=== PATIENT | female | born 1995 | race Caucasian/White ===

== ENCOUNTER 2022-05-25 18:00 | Inpatient (IN) | payer BC, SELFPAY ==
[2022-05-25] VITALS (34 sets, daily range): BP systolic 92–127; BP diastolic 54–75; PULSE 56–110; RESP 14; TEMP 36.6–37.2; O2SAT 92–100; BMI 34.0
[2022-05-25 18:02] LABS: Amnisure Rom* POSITIVE
[2022-05-25 19:46] LABS: SARS PCR* Negative SARS-CoV-2 (Negative)
--- NOTE | 2022-05-25 20:20 | P.OBHP_ITS ---
OB - H&P: HPI Labor/Induction History of Present Illness Chief Complaint: The patient is a 26 year old 1 para 0 at 38+4 weeks gestation by 7w US, who presents with contractions and SROM. Chief complaint: maternity : 1 Para: 0 Date of last menstrual period: 08/15/21 Estimated date of delivery: 05/22/22 Gestational age based on last menstrual period: 38 Narrative: Ernestine Echavarria is a 27 year old female at 38 weeks 4 days gestation who presents contractions and a SROM. She was evaluated in triage earlier today for contractions. Found to be 1.5 cm, 80%, -1. No change management consultant the several hours she was here and was discharged home. Continued to contract at home. [place] a trickle of fluid around 2:00 p.m. and came back to Labor and delivery around 4 PM where AmniSure was positive. On my initial cervical exam, I felt as if there may be a septum across the cervical opening with bulging membranes palpated in both. Given patient's known atypical anatomy, OB clinical services professional, Dr. Kiersten Horner, was consulted. Upon her arrival, she repeated the exam. [place] that the patient's left cervical opening was 5/100/- 3. Cervix on maternal right was also very effaced and septum between the two was bulging into the right cervical opening. [place] that these were discrete cervixes as previously thought, and we could proceed with labor management as usual. Following this, I performed AROM for clear fluid. Patient then requested epidural. 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 Perinatology consult in the 2nd trimester. It was noted there was no contraindication to vaginal incision should be reserved for normal obstetric indications. 2. Fibromyalgia and chronic fatigue. Frequent headaches managed with Tylenol 3. PCOS 4. Euthyroid with positive TPO antibody. Thyroid testing normal during . 5. Anemia on oral iron. Hemoglobin 10.9 on 05/01 6. Depression on sertraline. Mood has been stable during . Labs Blood type: A (+) positive Rubella: immune RPR/VDLR: nonreactive GBS status: negative HBsAG: negative Review of Systems Status of ROS: Reports: 10 or more systems reviewed and unremarkable except as noted in History and below Meds Home Medications and Allergies Home Medications Medication Instructions Recorded Confirmed Type sertraline 100 mg tablet mg 05/25/22 History Allergies Allergy/AdvReac Type Severity Reaction Status Date / Time latex Allergy Intermediate itching Verified 05/25/22 02:13 OB - H&P: Exam Physical Exam: Vital signs: Temp Pulse Resp BP Pulse Ox 98.4 F 67 14 122/75 97 05/25/22 17:32 05/25/22 19:11 05/25/22 17:32 05/25/22 19:11 05/25/22 17:32 Narrative: General: Well-appearing adult female. Alert oriented and appropriate. Sitting up in hospital bed. Breathing through contractions. Head: Normocephalic, atraumatic Eyes: EOMI, no conjunctival injection or discharge. Ears: Normal external ears bilaterally Nose: Nares patent. No nasal discharge Mouth: Mucous membranes moist Neck: Supple Cardiovascular: Regular rate and rhythm, no rubs, murmurs or extra heart sounds Pulmonary: Clear to auscultation bilaterally. No wheezes, rales or rhonchi. Abdomen: Gravid. Soft. Extremities: Warm and well perfused. Trace edema bilaterally. Neurologic: Grossly intact. No focal deficits. Psych: Affect appropriate. Detailed Labor and Delivery Exam: Dilation (cm): 3 (Cervix on maternal left. Bulging bag. Cervix on maternal right dilated to 2-3, 100% effaced.) Effacement (%): 100 Cervix position: anterior Consistency: soft Comments: Dom Q 7-9 minutes. Moderate variability. Positive accels. No decels. OB - Results Labs Labs: Hemoglobin 12.3. COVID negative. OB - Problem Based A/P Additional Plan (1) Uterus didelphys in : Status: Acute (2) Normal first confirmed: Status: Acute Plan 1&2. - Normal labor progress. Expectant management. - Epicural planned for pain control - status reassuring. Continue intermittent monitoring - GBS negative CC: Cecilia Villalta MD
[2022-05-25 20:28] LABS: Hemoglobin* 12.3 gm/dL (12.0-16.0)
[2022-05-25] MEDS: LACTATED RINGERS 1000 ML 1,000 ML IV (21:46)
--- NOTE | 2022-05-25 21:52 | P.OBCN_ITS ---
OB - CN: HPI Date of Consult Date Seen: 05/25/22 Patient: [place] Patient Consult date: 05/25/22 Requesting Physician: Cecilia Villalta MD Consult Narrative Narrative: The patient is a 27 year old G1 P 0 woman at 38 4/7 weeks gestation that was admitted to the Center on 05/25/22 for labor. She had Amnisure test return positive shortly after admission. Her history is notable for uterine didelphys. She as been seen in consult by MPP during this . She has had imaging including MRI in the past. Per Dr. Iqbal, recommendations were to manage her labor as per usual. Upon cervical exam, Dr. Villalta was concerned for longitudinal vaginal septum, and I have been asked to evaluate the patient for this. History History 1 Elective abortions Para 0 Spontaneous abortions Hx # Term Pregnancies Ectopic pregnancies Hx # Pregnancies Multiple births Number of Living Children 0 Labs Blood type: A (+) positive Rubella: immune RPR/VDLR: nonreactive GBS status: negative HBsAG: negative OB Labs: Lab Assessment Start: 05/25/22 18:06 Freq: ONCE Status: Complete Protocol: NextinitOBGBS Activity Type Activity Date Activity User E-Sign Co-Sign Detail Recorded Client Recorded Date Recorded By Document 05/25/22 18:19 YUNG [id number] 05/25/22 18:22 YUNG 05/25/22 18:19 Lab Assessment GBS neg Previous [place] with Invasive GBS No Does Patient Meet Criteria No No Treatment Needed OK Maternal Blood Type A Maternal RH Factor Positive Evaluate Maternal Rubella Immune Status Immune Hepatitis B Surface Antigen Negative Maternal HIV Status Negative Maternal Syphillis (RPR) Status Negative Are Labs Available Yes Review of Systems Narrative: + for regular contractions PFSH PFSH Medical History (Updated 05/25/22 @ 21:48 by Cecilia Villalta MD) Anemia Anti-TPO antibodies present Chronic fatigue Depression Fibromyalgia PCOS (polycystic ovarian syndrome) Uterus didelphys in Social History (Updated 05/25/22 @ 21:23 by Cecilia Villalta MD) Smoking Status: Never smoker Meds Home Medications and Allergies Home Medications Medication Instructions Recorded Confirmed Type sertraline 100 mg tablet mg 05/25/22 History Allergies Allergy/AdvReac Type Severity Reaction Status Date / Time latex Allergy Intermediate itching Verified 05/25/22 02:13 OB - H&P: Exam Physical Exam: Vital signs: Temp Pulse Resp BP Pulse Ox 98.4 F 67 14 122/75 97 05/25/22 17:32 05/25/22 19:11 05/25/22 17:32 05/25/22 19:11 05/25/22 17:32 Narrative: Gen: Breathing through contractions, sitting upright, rocking in bed Cervical exam: cervix on maternal right / anterior is 6 / 100% / -2 station with bulging bag. Immediately adjacent to this is a very thin separation and what seems to be another cervical os that is less dilated but 100% effaced; this os is to the right and slightly posterior. The cervices seem to share a common border in the midline. heart tones: baseline 130 / accels present / no decel / moderate variability OB - Results Labs Labs: Short CBC 05/25/22 Range/Units 20:20 Hgb 12.3 (12.0-16.0) gm/dL OB - CN: A/P Assessment and Plan (1) Uterus didelphys in : Status: Acute Assessment and Plan: Active labor in patient with uterine didelphys Category I tracing. This is my first exam for this patient. 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 Regardless, I agree [facility] recommendations for expectant management. I will be available for management of any labor arrest disorders or for assistance with any cervical lacerations arising from vaginal .
[2022-05-25] MEDS: ROPIVACAINE 0.2% 100 ml 100 ML 12 MG EPIDURAL (22:38)
--- NOTE | 2022-05-25 22:47 | PM.ANBPRC ---
PFSH PFS Medical History (Updated 05/25/22 @ 21:48 by Cecilia Villalta MD) Anemia Anti-TPO antibodies present Chronic fatigue Depression Fibromyalgia PCOS (polycystic ovarian syndrome) Uterus didelphys in Social History (Updated 05/25/22 @ 21:23 by Cecilia Villalta MD) Smoking Status: Never smoker Meds Home Medications and Allergies Home Medications Medication Instructions Recorded Confirmed Type sertraline 100 mg tablet mg 05/25/22 History Allergies Allergy/AdvReac Type Severity Reaction Status Date / Time latex Allergy Intermediate itching Verified 05/25/22 02:13 Results Labs Labs: Laboratory Results - last 24 hr 05/25/22 05/25/22 05/25/22 17:29 18:06 18:19 Hgb Membrane Rupture POSITIVE SARS-CoV-2 (PCR) Negative SARS-CoV-2 Blood Type A Positive Antibody Screen NEGATIVE 05/25/22 20:20 Hgb 12.3 Membrane Rupture SARS-CoV-2 (PCR) Blood Type Antibody Screen Vital Signs Vital Signs: Last Vital Signs Temp 98.4 F 05/25/22 17:32 Pulse 73 05/25/22 22:42 Resp 14 05/25/22 17:32 BP 117/58 L 05/25/22 22:42 Pulse Ox 99 05/25/22 22:43 Weight: 87.044 kg Height: 160.02 cm Anesthesia Procedures Epidural Insertion Patient Location: OB Start Time: 22:00 Stop Time: 23:00 Start Date: 05/25/22 Stop Date: 05/25/22 Reason for Block: procedure for pain Patient Position: sitting Performed By: Eulogio Maldonado Preanesthetic Checklist: IV checked, risks and benefits discussed, surgical consent, monitors and equipment checked, pre-op evaluation, timeout performed and anesthesia consent Prep: chlorhexidine gluconate Monitoring: blood pressure monitoring, continuous pulse oximetry and heart rate Approach: midline Vertebral Space: lumbar (1-5) Epidural Technique: JAYLON saline Needle Type: Tuohy needle Injection Technique: continuous shot Needle gauge: 17 Needle Length (cm): 10 cm Needle Insertion Depth (cm): 8 Catheter Gauge: 19 Catheter Type: multi-orifice Catheter at skin depth (cm): 13 Test Dose Result: negative and lidocaine 1.5% with epinephrine 1 to 200,000
[2022-05-25] MEDS: LACTATED RINGERS 1000 ML 1,000 ML 125 ML IV (22:49)
[2022-05-26] VITALS (81 sets, daily range): BP systolic 89–140; BP diastolic 50–80; PULSE 56–110; RESP 15–18; TEMP 36.6–37.8; O2SAT 61–99
[2022-05-26] MEDS: LACTATED RINGERS 1000 ML 1,000 ML 125 ML IV (01:52)
[2022-05-26] MEDS: OXYTOCIN 30 unit/500 ML in NS 30 UNIT/500 ML BAG IVPB (03:45)
[2022-05-26] MEDS: ROPIVACAINE 0.2% 100 ml 100 ML 12 MG EPIDURAL (06:48)
--- NOTE | 2022-05-26 08:31 | PM.OBPNL ---
Pain Control Time Seen by Provider: 08:31 Date Seen: 05/26/22 Pain control: epidural Comments: Comfortable. Contractions Contraction frequency: 2 (2-6, somewhat irregular) Contraction pattern: Irregular Pelvic Exam Dilation (cm): 10 Effacement (%): 100 Station: -1 Fetus (Single) Amniotic Membrane Status: SROM (Forebag ruptured 05/25 2140) status: Category l Comments: Periods of minimal variablility overnight. No decels. Now moderate variability, + accels. Reassuring. Assessment and Plan Pitocin rate (mU/min): 5 Assessment: active labor Comments: Labor down. Begin pushing in 1 hour or with increased pressure.
[2022-05-26] MEDS: LACTATED RINGERS 1000 ML 1,000 ML 500 ML IV (09:18)
--- NOTE | 2022-05-26 10:59 | PM.OBPNL ---
Pain Control Pain control: epidural Comments: Appears fatigued. Maternal effort poor with pushing. Contractions Contraction frequency: 2 (2-5) Contraction pattern: Regular Pelvic Exam Dilation (cm): 10 Effacement (%): 100 Station: +2 Comments: Asynclitic presentation. Fetus (Single) Amniotic Membrane Status: SROM (Forebag ruptured 05/25 2140) status: Category ll Comments: tachycardia to 170. Minimal variability and deep variables with pushing. Good return to basleline. Assessment and Plan Pitocin rate (mU/min): 6 Assessment: active labor Comments: - Category II tracing, continue to monitor closely - tachycardia. ROM now 21 hours. No maternal fever measured. Plan to start abx if meets criteria for IAI - RN working with patient, positional changes for asynclitism - Guarded status. Low threshold for OB consult to consider section if no signficant progress.
--- NOTE | 2022-05-26 12:23 | P.OBCN_ITS ---
OB - CN: HPI Date of Consult Date Seen: 05/26/22 Patient: [place] Patient Consult date: 05/26/22 Requesting Physician: Cecilia Villalta MD Consult Narrative Reason for consult: arrest of labor Narrative: The patient is a 27 year old G 1 P 0 at 38 5/7 weeks gestation that was admitted to the Center on 05/25/22 for spontaneous onset of labor. She has a known uterine didelphys. She made adequate progress in labor and began pushing at about 0915 this morning. Despite maternal pushing efforts, the fetus remains at a 2+ station. position is occiput posterior and asynclitic. History of Present Dating criteria: based on LMP care: good care complications: other (Uterine didelphis) History History 1 Elective abortions Para 0 Spontaneous abortions Hx # Term Pregnancies Ectopic pregnancies Hx # Pregnancies Multiple births Number of Living Children 0 Labs Blood type: A (+) positive Rubella: immune RPR/VDLR: nonreactive GBS status: negative HBsAG: negative OB Labs: Lab Assessment Start: 05/25/22 18:06 Freq: ONCE Status: Complete Protocol: PC.OBGBS Activity Type Activity Date Activity User E-Sign Co-Sign Detail Recorded Client Recorded Date Recorded By Document 05/25/22 18:19 YUNG [id number] 05/25/22 18:22 YUNG 05/25/22 18:19 Lab Assessment GBS neg Previous [place] with Invasive GBS No Does Patient Meet Criteria No No Treatment Needed OK Maternal Blood Type A Maternal RH Factor Positive Evaluate Maternal Rubella Immune Status Immune Hepatitis B Surface Antigen Negative Maternal HIV Status Negative Maternal Syphillis (RPR) Status Negative Are Labs Available Yes PFSH PFSH Medical History Anemia Anti-TPO antibodies present Chronic fatigue Depression Fibromyalgia PCOS (polycystic ovarian syndrome) Uterus didelphys in Social History Smoking Status: Never smoker Meds Home Medications and Allergies Home Medications Medication Instructions Recorded Confirmed Type sertraline 100 mg tablet mg 05/25/22 History Allergies Allergy/AdvReac Type Severity Reaction Status Date / Time latex Allergy Intermediate itching Verified 05/25/22 02:13 OB - H&P: Exam Physical Exam: Vital signs: Temp Pulse Resp BP Pulse Ox 98.7 F 71 14 104/51 L 92 05/26/22 10:06 05/26/22 11:03 05/25/22 17:32 05/26/22 11:03 05/25/22 23:27 Constitutional: Constitutional: no acute distress Detailed Labor and Delivery Exam: Patient Gravid: yes Dilation (cm): 10 Effacement (%): 100 Cervix position: mid Consistency: soft Contraction duration (sec): 2 Tachysystole: No Contraction intensity: Strong/Firm Fetus (Single): Station: -2 Position: Right Occiput Posterior (asynclitic, manual rotation attempted and unsuccesful) Amniotic Membrane Status: SROM Amniotic Membrane Fluid Description: Clear Heart Rate Baseline: 170 Monitor Accelerations: Absent Monitor Dec elerations: None Business Rules Analyst Variability: Minimal (3-5) OB - Results Labs Labs: Short CBC 05/25/22 Range/Units 20:20 Hgb 12.3 (12.0-16.0) gm/dL OB - CN: A/P Assessment and Plan (1) Uterus didelphys in : Status: Acute (2) Normal first confirmed: Status: Acute (3) Arrested labor: Status: Acute Plan The relative risks of delivery were discussed with the patient. Risks discussed include, not limited to, bleeding, blood transfusion, infection, injury to other organs or infant. We discussed postoperative pain control, the anticipated hospital stay, and the fact that she would be a candidate for vaginal delivery in the future with another as long as no other risk factors arise. Informed consent for delivery was obtained. The OR staff and Anesthesia were notified.
--- NOTE | 2022-05-26 14:26 | W.ANESCHARGE ---
Anesthesia Charges Start Date/Time Anesthesia Start Date: 05/26/22 Anesthesia Start Time: 12:33 Stop Date/Time Anesthesia Stop Date: 05/26/22 Anesthesia Stop Time: 14:19 Summary Emergency: No
--- NOTE | 2022-05-26 15:09 | P.NB_ITS ---
Nerve Block Nerve Block Time Seen by Provider: 15:10 Date Seen: 05/26/22 Type of block requested by surgeon for post-operative analgesia: TAP Side: bilateral Time out performed: Yes Verification of patient name: Yes Verification of date of : Yes Site marking: site marked Name of person performing procedure: Joel Continuous monitoring Was continuous monitoring of O2 sat, B/P, quality assurance monitor final, recorded every 15 minutes?: Yes Procedure Checklist: sterile prep, needles and gloves Ultrasound guided. Images saved: Yes Medications given in 5ml increments after negative aspiration: Marcaine %: 0.25 mL: 30 Needle gauge: 20 and Exparel mL: 10 Patient tolerated procedure well: Yes Additional comments: Needle noted adjacent to nerve
--- NOTE | 2022-05-26 15:10 | W.ANESCHARGE ---
Anesthesia Charges Start Date/Time Anesthesia Start Date: 05/26/22 Anesthesia Start Time: 12:33 Stop Date/Time Anesthesia Stop Date: 05/26/22 Anesthesia Stop Time: 14:19 Summary Emergency: No
--- NOTE | 2022-05-26 16:48 | P.OBPRC_ITS ---
Procedure Pre-op/Post-op diagnoses: Pre-Op/Post-Op Diagnoses Operation Date: 05/26/22 12:45 <No data on this case meets the specified criteria> Procedure Done: only Procedure Details: Procedures Operation Date: 05/26/22 12:45 Actual Procedure Side Surgeon p Section Haylie Galvez MD Mechanical Maintenance Foreman: Bibiana Hopson Estimated blood loss (mL): 1,034 Disposition: floor Anesthesia type: Epidural Complications: None. Narrative: PREOPERATIVE DIAGNOSES: 1. Intrauterine at 38 5/7 weeks' gestation. 2. Uterine didelphys. 3. Secondary arrest of descent. 4. tachycardia. POSTOPERATIVE DIAGNOSES: 1. Intrauterine at 38 5/7 weeks' gestation. 2. Uterine didelphys. 3. Secondary arrest of descent. 4. tachycardia. NAME OF PROCEDURE: Primary low transverse section. SURGEON: Leonor. ANESTHESIA: Epidural. COMPLICATIONS: None. ESTIMATED BLOOD LOSS: 1034 mL. DRAINS: [place] to gravity. FINDINGS: Live-born female infant, cephalic presentation, occiput posterior position with deflexed neck, Apgars 7 and 9 at 1 and 5 minutes respectively. weight pending. Normal appearing Fallopian tubes and ovaries. Uterus was found to have a normal external contour. The uterus had a thick septum running from fundus to cervix, which was disrupted/torn at the level of the lower uterine segment down to the cervix, presumably from cervical dilatation and pushing. The infant and placenta were in the left horn. The right horn was communicating, because the dividing septum was torn along its lower half There was decidual tissue present within the right horn. PROCEDURE: After obtaining informed consent, the patient was taken to the operating room where spinal anesthesia was obtained and found to be adequate. She was prepared and draped in the normal sterile fashion in the dorsal supine position with a leftward tilt. A Pfannenstiel skin incision was made with a scalpel. This incision was carried down to the underlying layer of fascia with the Bovie. The fascia was incised in the midline and the incision extended laterally. The superior and inferior aspects of the fascial incision were g rasped with Breanne clamps, elevated and the underlying rectus muscles dissected off sharply and with electrocautery. The rectus muscles were then in the midline. The Apolinar O retractor was then placed into the incision. The lower uterine segment was then incised in a transverse fashion with the scalpel. Upon entry into the uterus, thick meconium-stain amniotic fluid was noted. The uterine incision was extended laterally with blunt finger fractionation. The infant's head was very difficult to flex and elevate. An RN was asked to sterilely apply cephalad pressure to the vertex, and I was able to flex the neck and deliver the head, followed by the remainder of the infant's body. The nose and mouth were suctioned with the bulb suction. The cord was doubly clamped and cut, and the infant was handed off the field to Dr. Mclean for evaluation. The placenta was delivered spontaneously with umbilical cord traction and fundal massage. The uterus was cleared of all clots and debris. The hysterotomy incision was carefully inspected, as was the uterine cavity. It became apparent that there were 2 uterine horn by a thick septum. Apparently, the septum had initially extended to the level of the cervix, but from the lower uterine segment down, the septum was disrupted, uniting the to cavities. The torn edges of the septum were clamped across with Josh clamps, excised, and the pedicle suture ligated with 0 chromic for hemostasis. The transverse hysterotomy incision was then reapproximated in a running locking fashion with a 0 chromic suture. A 2nd layer of the same suture was used to imbricate in horizontal fashion. The gutters were irrigated and suctioned. All instruments and retractors were removed. The anterior peritoneum was reapproximated in a running fashion with a 3-0 Vicryl suture. The subfascial tissues were carefully inspected and hemostasis assured. The fascia was reapproximated in a running fashion with a looped 0 Maxon suture. The subcutaneous tissues were copiously irrigated. Hemostasis was assured. The subcutaneous fat layer was reapproximated with interrupted sutures of 3-0 plain gut. The skin was closed in a subcuticular fashion with 4-0 Vicryl. LiquiBand and dressing were applied. The patient tolerated the procedure well. Sponge, lap, needle, and instrument counts were reported as correct x2. The patient was taken to the recovery room, awake, and in stable condition. She did receive 2 grams of IV Ancef preoperatively. PATHOLOGY: 1. Placenta. 2. Decidua from right uterine horn. 3. Uterine septum. [place] total score - 1 minute: 7 total score - 5 minute: 9 OB Delivery Proc Additional Procedures Tubal Ligation at the time of : No
[2022-05-26] MEDS: KETOROLAC 30 MG/ML inj IVP (20:19)
[2022-05-27] VITALS (21 sets, daily range): BP systolic 94–103; BP diastolic 63–66; PULSE 93–109; RESP 16–18; TEMP 36.7–36.9; O2SAT 95–99
[2022-05-27] MEDS: diphenhydrAMINE 50 MG/ML inj 12.5 MG IVP (00:20)
[2022-05-27] MEDS: KETOROLAC 30 MG/ML inj IVP ×3 (02:50→16:10)
--- NOTE | 2022-05-27 07:47 | P.OBPN_ITS ---
OB - PN: A/P Assessment and Plan (1) Uterus didelphys in : Status: Acute (2) Normal first confirmed: Status: Acute (3) Arrested labor: Status: Acute (4) Status post section routine follow-up: Status: Acute Plan day: 1 Plan: routine postop care OB - PN: Subj Subjective Patient comments: no complaints, pain well controlled, tolerating diet and flatu s present status: feeding status: exclusively OB - PN: Obj Exam Physical Exam: Vital signs: Temp Pulse Resp BP Pulse Ox 98.2 F 109 H 16 100/66 95 05/27/22 03:32 05/27/22 03:32 05/27/22 04:00 05/27/22 03:32 05/27/22 03:32 Constitutional: Constitutional: no acute distress Routine HEENT Exam: Head: Present normal inspection Routine Abdominal Exam: Abdominal: Present soft Fundus: Present firm Detailed Skin Exam: abdomen: Body image: 1. low transverse incision Comments: Dressing clean, dry and intact. Routine Neurological Exam: Neurological: Present alert and oriented X3 Routine Psychiatric Exam: Psychiatric: Present normal affect OB - PN: Obj Data Labs Labs: Laboratory Results - last 24 hr 05/27/22 07:00 Hgb 9.0 L
[2022-05-27] MEDS: DOCUSATE SODIUM 100 MG CAPSULE PO (08:41)
[2022-05-27] MEDS: FERROUS SULFATE 325 MG TABLET PO (09:09)
[2022-05-27] MEDS: IBUPROFEN 600 MG TABLET PO (20:38)
[2022-05-27] MEDS: ACETAMINOPHEN 500 MG TABLET 1000 MG PO (23:11)
[2022-05-28 04:23] VITALS: BP 99/66; PULSE 87; RESP 16; TEMP 36.5; O2SAT 97
[2022-05-28] MEDS: IBUPROFEN 600 MG TABLET PO ×2 (04:31→15:33)
[2022-05-28] MEDS: SERTRALINE 50 MG TABLET 100 MG PO (04:32)
[2022-05-28] MEDS: ACETAMINOPHEN 500 MG TABLET 1000 MG PO ×2 (06:26→18:59)
--- NOTE | 2022-05-28 08:33 | PM.OBPNCS1 ---
OB - PN: A/P Assessment and Plan (1) Status post section routine follow-up: Status: Acute (2) Uterus didelphys in : Status: Acute (3) Arrested labor: Status: Acute (4) Lactating mother: Status: Acute Assessment and Plan: May see if desired. Plan day: 2 Plan: routine postop care and other (Continue working on . Anticipate discharge tomorrow.) OB - PN: Subj Subjective Date Seen: 05/28/22 Interval history: The patient feels well. The pain is well controlled with current medications. She has no new complaints. Urinary output is adequate and she is voiding without difficulty. Has a good appetite, is tolerating a general diet, is passing flatus, and has not yet had a bowel movement. Has scant amount of rubra lochia. She is ambulating well. Patient is and reports things are difficult. Baby is struggling to latch. She has been working with the nurses overnight. They have discussed using a nipple shield or SNS to help. She has no preferences on route and is ok if baby needs a bottle. She plans to stay today to continue to work on . Patient comments: no complaints, pain well controlled, incisional pain (mild), tolerating diet and flatus present [place] infant status: feeding status: exclusively OB - PN: Obj Exam Physical Exam: Vital signs: Temp Pulse Resp BP Pulse Ox 97.7 F 87 16 99/66 97 05/28/22 04:23 05/28/22 04:23 05/28/22 04:23 05/28/22 04:23 05/28/22 04:23 Constitutional: Constitutional: no acute distress and cooperative Routine Respiratory Exam: Respiratory: Present CTA bilaterally Routine Cardiovascular Exam: Cardiovascular: Present RRR Routine Abdominal Exam: Abdominal: Present soft Fundus: Present firm Comments: u/u Routine Exam: Perineum Description: Edematous (Mild) Comments: . Routine Extremities Exam: Extremities: Present full ROM and normal inspection Routine Skin Exam: Skin: Present wounds (Incision) Routine Psychiatric Exam: Psychiatric: Present normal affect and cooperative Wound Management: Method: adhesive Examination: Present clean and dry Comments: Well approximated
[2022-05-28] MEDS: FERROUS SULFATE 325 MG TABLET PO (08:49)
[2022-05-28] MEDS: DOCUSATE SODIUM 100 MG CAPSULE PO (08:49)
[2022-05-28] MEDS: LANOLIN CREAM 1 APPLIC TOPICAL (09:06)
[2022-05-28 10:15] VITALS: BP 109/71; PULSE 67; RESP 16; TEMP 36.6; O2SAT 97
[2022-05-28 16:00] VITALS: BP 107/72; PULSE 97; RESP 16; TEMP 36.8; O2SAT 98
--- NOTE | 2022-05-28 17:02 | PM.OBDSCS1 ---
DS: Providers Provider Date Seen: 05/28/22 Date of admission: 05/25/22 18:00 Admitting Clinician: Cecilia Villalta MD Attending Physician on discharge: Nidhi Guzman CNM Date of Discharge: 05/28/22 DS: Diagnosis Discharge Diagnosis (1) Status post section routine follow-up: Status: Acute (2) Uterus didelphys in : Status: Acute (3) Lactating mother: Status: Acute Exam Const: Vital Signs, click to edit/add: Vital Signs - 24 hr 05/27/22 18:00 05/27/22 20:26 05/28/22 04:23 Temperature 98.1 F 97.7 F Pulse Rate [Pulse Oximeter] 93 87 Respiratory Rate 16 16 16 Blood Pressure [Ri ght Arm] 103/63 99/66 Pulse Oximetry 97 97 05/28/22 10:15 05/28/22 16:00 Temperature 97.9 F 98.2 F Pulse Rate [Pulse Oximeter] 67 97 Respiratory Rate 16 16 Blood Pressure [Ri ght Arm] 109/71 107/72 Pulse Oximetry 97 98 Documenting provider has reviewed patient's vital signs: yes Common normals: no apparent distress, oriented x3, no limitations, healthy appearing, alert and well nourished HENMT: Common normals: normocephalic Head and scalp: normocephalic Eye: Common normals: PERRL and EOMs intact bilaterally Pupil: PERRL Neck & C-Spine: Common normals: full ROM and supple Chest: Common normals: inspection of chest normal Other: Breast exam: deferred Resp: Common normals: normal respiratory effort, no retractions and clear to auscultation bilaterally Auscultation: clear to auscultation bilaterally Cardio: Common normals: regular rate and regular rhythm Rate: regular rate Rhythm: regular rhythm GI: Common normals: Normal to inspection, nondistended, normoactive bowel sounds present, soft to palpation and non-tender Inspection: incision (clean dry and intact, well approximated) Palpation: soft : Uterus: U/U Lochia: scant Back & Pelvis: Common normals: thoracic and lumbar spine normal to inspection Extremity: Common normals: normal to inspection and full ROM Neuro: Common normals: oriented x3, moves all extremities and gait normal Sensorium/orientation: alert Psych: Common normals: mental status grossly normal, thought process normal, affect normal, speech normal and activity/motor behavior normal Speech: normal speech Thought process: normal thought process Skin: Common normals: no rashes or lesions noted General skin exam: no rashes or lesions noted DS: Data Data Completed and Pending Labs on day of discharge: Labs from last 24 hours 05/26/22 13:30 Surg PTH (Off-Site) See Scanned Report OB - DS: Summary Hospital Course Hospital Course: The patient is a 27 year old G 1 P 1 at 38 5/7 weeks gestation that was admitted to the Center on 05/25/22 for spontaneous labor and SROM. She had an complicated delivery due to uterine septum and hemorrhage based on EBL of >1000. She delivered a viable female infant, Richard. She is breast feeding with assistance of a nipple shield. She reports things are going better since implementing the nipple shield. the patient has done well and now prefers to go home today instead of staying overnight and discharging tomorrow as previously planned. Peripartum Data Procedures: Procedures Operation Date: 05/26/22 12:45 Actual Procedure Side Surgeon p Section Haylie Galvez MD [place] Infant Gender: Female Infant Discharge Plan: Home Status at Discharge Functional status at discharge: independent ambulation Overall status at discharge: patient is progressing back to baseline Time Spent with Patient Time attestation: Total time spent providing and/or coordinating discharge services: Time spent: Less than 30 minutes Discharge Plan Discharge Disposition: Home, Self-Care Date of Admission: 05/25/22 18:00 Attending Provider on Discharge: Nidhi Guzman Condition: Stable Anticipated Discharge Date/Time: 05/28/22 17:30 Discharge Medications: New docusate sodium 100 mg Capsule 100 mg PO DAILY Qty: 90 0RF ibuprofen 600 mg Tablet 600 mg PO Q6H PRN (Reason: Pain) Qty: 60 0RF oxycodone 5 mg Tablet 5 - 10 mg PO Q4H PRN (Reason: Pain) Qty: 20 0RF acetaminophen 500 mg Tablet 1,000 mg PO Q6H PRN (Reason: Pain) Qty: 0 0RF Continued sertraline 100 mg tablet 100 mg PO DAILY 0RF Discharge Orders: Discharge Order (Routine); Ordered 07/21/22 Ordered By: Nidhi Guzman Patient Education: OB /Breast Feeding Activity Restrictions/Additional Instructions: Discharge instructions were reviewed with the patient including signs and symptoms of infection and home going medications. Lifting Restrictions: 20 pounds for [address] while taking pain meds. Off Work or School for 8 weeks. Symptoms to report to doctor: -Bleeding that saturates more than one pad per hour ?-Passing clots larger than the size of a golf ball ?-Pain not relieved by prescribed medication ?-Fever above 100.4 degrees Fahrenheit ?-A foul vaginal odor ?-Difficulty in emotions, mood and functions ?-Thoughts of hurting yourself and/or ?-Painful, reddened area in your breast ?-Any drainage, redness or tenderness in your IV/epidural site ?-Severe headache that doesn't improve after taking medications ?-Changes in vision, including temporary loss of vision, blurred vision, and/or light sensitivity ?-Upper abdominal pain (usually under ribs on the right side) ?-Decrease in urination or painful, frequent urinating ?-Chest pain ?-Shortness of breath ?-Tenderness or pain with redness and/swelling in the calf(s) of your leg Follow Up with Primary OB provider at 2 weeks and 6 weeks. consultation services are available to all mothers and babies for the first year after delivery.? To make an appointment, please call [phone]. Activity Level: Activity as Tolerated Discharge Diet: Regular Follow Up Appointments: Cecilia Villalta MD [Staff Physician] - Forms: [employer] Info Instructions
== END 2022-05-28 19:25 | disposition home or self-care (01) | DRG 540 ==
LOC: OB OUT 18:36 → OB 18:36
PROVIDERS: Obstetrics & Gynecology; Admitting Provider Family Medicine; Visit Provider Obstetrics & Gynecology
PROC: (CPT 59514; principal; 2022-05-26 12:30)
DX: O34.03 Maternal care for unspecified congenital malformation of uterus, third trimester (principal); Q51.10 Doubling of uterus with doubling of cervix and vagina without obstruction; O32.4XX0 Maternal care for high head at term, not applicable or unspecified; O76 Abnormality in fetal heart rate and rhythm complicating labor and delivery; O72.1 Other immediate postpartum hemorrhage; O99.02 Anemia complicating childbirth; D64.9 Anemia, unspecified; O99.344 Other mental disorders complicating childbirth; F32.A Depression, unspecified; M79.7 Fibromyalgia; O99.284 Endocrine, nutritional and metabolic diseases complicating childbirth; R53.82 Chronic fatigue, unspecified; E28.2 Polycystic ovarian syndrome; Z3A.38 38 weeks gestation of pregnancy; Z37.0 Single live birth
CPT/HCPCS: 01961; 01967; 01968; 36415; 59025; 84112; 85018; 86850; 86900; 86901; 87635; 88305; 88307; 99211; A9270; C9290; J1200; J1885; J2210; J2270; J2274; J2370; J2405; J2590; J2795; J3010; J3490; J7120; S0020

== ENCOUNTER 2025-02-06 17:55 | Outpatient (CLI) | payer BC, SELFPAY ==
[2025-02-06 18:10] VITALS: PULSE 85; O2SAT 97
[2025-02-06 18:15] VITALS: PULSE 86; O2SAT 97
[2025-02-06 18:20] VITALS: BP 105/56; PULSE 85
[2025-02-06 18:21] VITALS: RESP 18; TEMP 36.4
[2025-02-06 18:49] LABS: Appearance Urine Clear (Clear); Bilirubin Urine Negative (Negative); Blood Urine Negative (Negative); Color Urine Yellow (Yellow); Glucose Urine Negative (Negative); Ketones Urine Negative (Negative); Leukocyte Esterase Urine Negative (Negative); Nitrite Urine Negative (Negative); Protein Urine Negative (Negative); Urobilinogen Urine 0.2 (0.2-1.0)
[2025-02-06 18:56] LABS: Amnisure Rom* Negative
[2025-02-06 18:59] LABS: Clue Cells <20% Clue Cells Seen (None Seen); Trichomonas No Trichomonas Seen (None Seen); Yeast No Yeast Seen (None Seen)
[2025-02-06 19:21] LABS: Fetal Fibronectin* Negative (Negative)
--- NOTE | 2025-02-06 20:30 | PC.OBNST ---
NST Note NST Note Start: 02/06/25 17:59 Freq: ONCE Status: Active Protocol: Document 02/06/25 20:13 JOS (Rec: 02/06/25 20:27 JOS [id number]) NST Note 3 Para (# of births) 1 EDC 04/17/25 Gestational Age In Weeks & Days 30 Weeks & 0 Days Patient Presented with Complaint(s) of Contractions/cramping,Other Other Complaints Constant abdominal tightening with increase vaginal discharge and itching. Appropriate for Gestational Age Yes RN Billie Haro, RN Date 02/06/25 Appropriate for Gestational Age Yes ARASELI Mann, ARASELI Date 02/06/25 OB NST charge Yes Complete NST Note via Write Note Yes The provider's electronic signature indicates the NST is reactive/appropriate for gestational age. *Note to provider: If an addendum is required, open the patient's chart and click on the note under the Nurse/Allied Health tab.
--- NOTE | 2025-03-07 17:43 | PC.OBNST ---
NST Note NST Note Start: 02/06/25 17:59 Freq: ONCE Status: Discharge Protocol: Document 02/06/25 20:13 JOS (Rec: 02/06/25 20:27 JOS [id number]) NST Note 3 Para (# of births) 1 EDC 04/17/25 Gestational Age In Weeks & Days 30 Weeks & 0 Days Patient Presented with Complaint(s) of Contractions/cramping,Other Other Complaints Constant abdominal tightening with increase vaginal discharge and itching. Appropriate for Gestational Age Yes RN Billie Haro, RN Date 02/06/25 Appropriate for Gestational Age Yes ARASELI Mann, ARASELI Date 02/06/25 OB NST charge Yes Complete NST Note via Write Note Yes The provider's electronic signature indicates the NST is reactive/appropriate for gestational age. *Note to provider: If an addendum is required, open the patient's chart and click on the note under the Nurse/Allied Health tab.
== END 2025-02-06 19:56 | disposition home or self-care (01) ==
LOC: OB OUT 17:56 → OB 17:56
PROVIDERS: PCP Family Medicine; Visit Provider Surgery
DX: O47.03 False labor before 37 completed weeks of gestation, third trimester (principal); Z3A.30 30 weeks gestation of pregnancy
CPT/HCPCS: 59025; 81003; 84112; 87210; G0463

== ENCOUNTER 2025-04-04 01:57 | Inpatient (IN) | payer BC, SELFPAY ==
[2025-04-04] VITALS (27 sets, daily range): BP systolic 91–114; BP diastolic 55–74; PULSE 64–94; RESP 16–22; TEMP 36.6–36.9; O2SAT 94–99
[2025-04-04 01:45] LABS: Amnisure Rom* POSITIVE
[2025-04-04] MEDS: LACTATED RINGERS 1000 ML 1,000 ML 999 ML IV (02:00)
[2025-04-04 02:04] LABS: Basophils Absolute Auto 0.01 K/uL (0.00-0.30); Basophils Percent Auto 0.1 % (0.0-3.0); Eosinophils Absolute Auto 0.14 K/uL (0.00-0.50); Eosinophils Percent Auto 1.3 % (0.0-7.0); Hematocrit 37.1 % (33.0-51.0); Hemoglobin* 12.5 gm/dL (12.0-16.0); Immature Granulocytes Abs Auto 0.09 K/uL (0.00-0.30); Immature Granulocytes Pct Auto 0.8 %; Lymphocytes Absolute Auto 2.51 K/uL (0.90-2.90); Mean Corpuscular HGB Conc 34 gm/dL (32-36); Mean Corpuscular Hemoglobin 30 pg (26-34); Mean Corpuscular Volume 88 fL (80-100); Monocytes Percent Auto 6.8 % (0.0-11.0); Neutrophils Absolute Auto 7.42 K/uL (1.7-7.0); Platelet Count* 268 K/uL (140-440); Red Blood Count 4.22 m/uL (4.00-5.20); White Blood Count* 10.91 K/uL (4.50-11.00)
[2025-04-04 02:06] LABS: Slide Review Reflex No
[2025-04-04] MEDS: AZITHROMYCIN 500 MG in 0.9 % SODIUM CHLORIDE 250 ml 250 ML 255 MG IVPB (02:15)
--- NOTE | 2025-04-04 02:39 | W.PM.LDBA ---
Subjective History of Present Illness Date Seen: 04/04/25 Narrative: Patient is being admitted to Labor and Delivery for repeat . She is a 30 year old -0-1-1 woman at 38 1/7 weeks gestation by LMP consistent with 10-week ultrasound with an TOBY of 04/17/2025. She is under the care of Dr. Summers at [facility]. She reports SROM around 1130 PM on 04/03/28. She has a history of a term for arrest descent on 05/26/2022. At the time of that , she was found to have a thick septum running from fundus to cervix which was disrupted and torn at the level of the lower uterine segment down to the cervix. The was in the left uterine horn. She has had imaging and been found to have normal kidneys. She had her history and physical 03/20/[address] Summers and reports no changes. Ob problem list: # Uterine didelphys with traumatic metroplasty intrapartum last Uterus had thick septum running from fundus to cervix which was disrupted/torn at levels lower uterine segment down to cervix, presumably from cervical dilation and pushing. Infant and placenta were in left horn. Right horn was communicating because the dividing septum was torn along its lower half. There was decidual tissue present in right horn. It became apparent that there were 2 uterine horn at by a thick septum. Essentially resulting in a single uterine cavity with a fundal septum vs arcuate contour on ultrasound Normal maternal kidneys 3D US or MRI 6-12 months Follow-up ultrasound for growth at 28-32 weeks# Previous low-transverse March 2022 for arrest of descent. # Marginal cord insertion # Anxiety and depression # RAFA positive per transferred records # anti TPO antibodies present OB - Problem Based A/P Additional Plan (1) Previous delivery affecting : Status: Acute (2) PROM (premature rupture of membranes): Problem details: at term Status: Acute Plan tracing: category I GBS: negative Delivery/Labor/Induction Plan Plan: Section OB Exam Physical Exam Vital signs: Temp Pulse BP Pulse Ox 98.3 F 75 111/66 96 04/04/25 01:38 04/04/25 01:31 04/04/25 01:31 04/04/25 02:38 Narrative: Physical exam: General: No acute distress Psych: Alert and oriented x3, full affect HEENT: Normocephalic, atraumatic Heart: Regular rate and rhythm, no murmur rub or gallop Lungs: Clear to auscultation bilaterally Abdomen: Soft, nontender, gravid, cephalic lie Lower extremities: No edema or erythema Pelvic exam: deferred
--- NOTE | 2025-04-04 02:49 | P.NB_ITS ---
Nerve Block Nerve Block Time Seen by Provider: 04:25 Date Seen: 04/04/25 Type of block requested by surgeon for post-operative analgesia: TAP Side: bilateral Time out performed: Yes Verification of patient name: Yes Verification of date of : Yes Site marking: site marked Name of person performing procedure: Eulogio Maldonado Continuous monitoring Was continuous monitoring of O2 sat, B/P, air sampling and monitoring, recorded every 15 minutes?: Yes Procedure Checklist: sterile prep, needles and gloves Ultrasound guided. Images saved: Yes Medications given in 5ml increments after negative aspiration: Marcaine %: 0.25 mL: 30 Needle gauge: 20 and Exparel mL: 10 Needle gauge: 20 Patient tolerated procedure well: Yes Additional comments: Injected in 5ml increments after negative aspiration Block Charges Block Charge (with Pro Fee): TAP Bilateral Use of Ultrasound Machine for Block: Yes- US Guidance/pain block
--- NOTE | 2025-04-04 02:50 | P.ANES_ITS ---
Anesthesia Charges Start Date/Time Anesthesia Start Date: 04/04/25 Anesthesia Start Time: 02:57 Stop Date/Time Anesthesia Stop Date: 04/04/25 Anesthesia Stop Time: 04:31 Summary Emergency: RISK MANAGEMENT MANAGER Coding CPT Codes CPT Codes: ANESTH CS DELIVERY - 26100 ([id number]) P2 - PATIENT W/MILD SYST DISEASE, QZ - RISK MANAGEMENT MANAGER SVC W/O PICK UP TRUCK DRIVER BY Additional Codes: Summary - Emergency: RISK MANAGEMENT MANAGER ([id number])
--- NOTE | 2025-04-04 02:50 | W.ANESCHARGE ---
Anesthesia Charges Start Date/Time Anesthesia Start Date: 04/04/25 Anesthesia Start Time: 02:57 Stop Date/Time Anesthesia Stop Date: 04/04/25 Anesthesia Stop Time: 04:31 Summary Emergency: JOINER APPRENTICE Coding CPT Codes CPT Codes: ANESTH CS DELIVERY - 48708 ([id number]) P2 - PATIENT W/MILD SYST DISEASE, QZ - JOINER APPRENTICE SVC W/O DOG SITTER BY Additional Codes: Summary - Emergency: JOINER APPRENTICE ([id number])
[2025-04-04] MEDS: CEFAZOLIN 1 GM inj 2 GM IVP (03:10)
[2025-04-04] MEDS: LACTATED RINGERS 1000 ML 1,000 ML 125 ML IV ×2 (03:31→06:13)
--- NOTE | 2025-04-04 03:42 | SUR.OPER ---
Dr. Horner stated no need to send placenta for specimen
[2025-04-04] MEDS: KETOROLAC 30 MG/ML inj IVP ×4 (04:07→21:54)
--- NOTE | 2025-04-04 04:13 | PM.OBPRCCS ---
Procedure Date of procedure: 04/04/25 Pre-op diagnosis: 38 weeks, 1 day gestation Previous section, desires repeat PROM at term Mullerian anomaly Post-op diagnosis: same Procedure Done: Global Will [facility] bill your pro fee for this procedure?: Yes Blood Loss Measurement Type: QBL (632) Bakri Used: No IV fluids (mL): 1,800 Urine Output (mL): 100 Surgeon: Kiersten Horner MD Anesthesia Type: Spinal Findings: 1. Male , cephalic presentation, Apgars 9 & 9, weight 7 lbs 5 oz 2. Bicornuate uterus, with in left uterine horn. Uterine cavity divided down most of its length from fundus to lower uterine segment, with communication only in the lower uterine segment. 3. Otherwise normal appearance to bilateral tubes and ovaries. Procedure Name: Repeat delivery Procedure Description: Patient was taken to the operating room with IV running. She received azithromycin and cefazolin in preoperative prophylaxis. Spinal anesthesia was administered. Goldberg catheter was inserted. She was prepped and draped in the usual sterile fashion. Anesthesia was tested and found to be adequate. A low-transverse skin incision was made with a scalpel and carried through to the underlying layer of fascia with the scalpel. The subcutaneous fat was dissected off the underlying fascia with Bovie. The fascia was nicked in the midline with a scalpel, and this incision was extended laterally with scissors. Fascia was dissected off the underlying rectus muscle superiorly and inferiorly using scissors. The rectus muscles were in the midline. Peritoneum was entered in the process. Bovie was used to widen this opening laterally. Apolinar O retractor was inserted and tightened down, providing excellent visualization of the lower uterine segment. The bladder reflection was found to be well below the planned site for hysterotomy. Low-transverse uterine incision was made with a scalpel. Incision was widened bluntly. The 's head was grasped through the hysterotomy and delivered with the help of fundal pressure. The remainder of the body delivered without incident. Cord was clamped and cut after 30 seconds. was handed off to attending nurses. The placenta was delivered manually when gentle traction on the cord was unsuccessful. The uterus was exteriorized and cleaned of all clots and debris with the dry lap pad. The uterine cavity was examined with findings as described above. The hysterotomy was reapproximated with 0 Vicryl in a running, locked fashion. Second layer of the same suture was used in imbricating fashion to obtain hemostasis. The adnexa were examined and noted to be normal in appearance. The uterus was returned to the abdomen. The cul-de-sac and gutters were cleansed with dampened laparotomy sponge, removing any further clots and debris. The Apolinar O retractor was removed. The hysterotomy was reexamined and found to be hemostatic. The peritoneum was reapproximated with 2 0 Vicryl in a running fashion. The rectus muscles were examined and found to be hemostatic. The fascia was reapproximated with 0 Vicryl in a running fashion. Subcutaneous fat was irrigated and Bovie used on oozing vessels. The subcutaneous fat was reapproximated with 2 0 plain gut suture in an interrupted fashion. The skin was closed with a subcuticular stitch of 4-0 Monocryl. Surgical glue was applied above this. Patient tolerated procedure well was taken to recovery area in stable condition. Complications: None Surgery Debrief Performed: Yes Surgery Debrief Comment: Postoperative debrief was verbalized with OR staff, including a verification of pathology specimens to be sent as described above. Condition: stable total score - 1 minute: 9 total score - 5 minute: 9
[2025-04-04] MEDS: SODIUM CHLORIDE 0.9 % (FLUSH) 10 ML SYRINGE IVF (21:54)
[2025-04-05] VITALS (8 sets, daily range): BP systolic 99–108; BP diastolic 6–70; PULSE 75–89; RESP 16–18; TEMP 36.5–36.8; O2SAT 96–97
[2025-04-05] MEDS: KETOROLAC 30 MG/ML inj IVP ×2 (04:00→09:59)
[2025-04-05] MEDS: DOCUSATE SODIUM 100 MG CAPSULE PO (09:59)
[2025-04-05] MEDS: ACETAMINOPHEN 500 MG TABLET 1000 MG PO ×2 (12:57→19:27)
[2025-04-05 15:55] LABS: Rapid Plasma Reagin (RPR) Non Reactive (Non Reactive)
[2025-04-05] MEDS: IBUPROFEN 600 MG TABLET PO ×2 (16:54→22:26)
--- NOTE | 2025-04-05 18:52 | PM.OBPNVD1 ---
OB - PN:Subj Subjective Time Seen by Provider: 18:50 Date Seen: 04/05/25 Narrative: Ernestine is a 30 y.o. who was admitted to L & D for a repeat C/S.? She had an uncomplicated repeat .? ? The patient feels well.? The pain is well controlled with current medications.? She has no new complaints.? She is breast feeding and reports things are going well.? the patient has done well.? Vitals have been stable.? She has remained afebrile.? Has a good appetite, is tolerating a general diet.? She is voiding without difficulty.? She is passing gas and has had a bowel movement.? She is ambulating and denies any dizziness.? Has Small amount of rubra lochia.? OB - PN: Obj Exam Physical Exam: Vital signs: Temp Pulse Resp BP Pulse Ox O2 Del Method 98.0 F 89 16 101/63 97 Room Air 04/05/25 16:54 04/05/25 16:54 04/05/25 16:54 04/05/25 16:54 04/05/25 16:54 04/05/25 16:54 Narrative: GENERAL APPEARANCE:? normal affect, alert, no distress MOOD:? appropriate CHEST:? clear to auscultation HEART:? regular rate and rhythm ABDOMEN:? soft, non-tender the uterine fundus is 1 cm below Umbilicus, Midline and is appropriate for the stage of recovery. EXTREMITIES:? normal and trace edema Incision: Healing well, no surrounding erythema, abnormal induration or discharge OB - PN: Obj Data Labs Labs: Laboratory Results - last 24 hr 04/04/25 04/05/25 01:55 06:13 Hgb 11.0 L RPR Screen Non Reactive OB - PN: A/P Delivery Assessment and Plan (1) Previous delivery affecting : Status: Acute (2) PROM (premature rupture of membranes): Problem details: at term Status: Acute (3) care following delivery: Status: Acute Plan day: 1 Plan: routine care Comments: Assessment/Plan?G 3 P 2 status post uncomplicated repeat .? ?? 1.? Continue route PP cares? 2.? .? May see if desired? 3.? Anticipate discharge home tomorrow or the following day per pt preference? ?
[2025-04-05] MEDS: SERTRALINE 100 MG TABLET PO (20:36)
[2025-04-06 03:30] VITALS: BP 117/69; PULSE 69; RESP 16; TEMP 36.6; O2SAT 96
[2025-04-06] MEDS: ACETAMINOPHEN 500 MG TABLET 1000 MG PO ×2 (03:48→10:40)
--- NOTE | 2025-04-06 07:46 | PM.OBDSVD1 ---
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 normal affect, alert, no distress? MOOD:? appropriate? CHEST:? clear to auscultation and percussion? HEART:? regular rate and rhythm? ABDOMEN:? soft, non-tender the uterine fundus is U/1 and is appropriate for the stage of recovery. Incision well approximated without drainage, redness or edema.? EXTREMITIES:? normal and no edema? Const: Vital Signs, click to edit/add: Vital Signs - 24 hr 04/05/25 16:54 04/05/25 19:27 04/05/25 19:35 Temperature 98.0 F 98.2 F 98.2 F Pulse Rate [Pulse Oximeter] 89 Respiratory Rate 16 16 Blood Pressure [Le ft Arm] 101/63 101/6 L Pulse Oximetry 97 97 Oxygen Delivery Me thod Room Air Room Air 04/05/25 20:36 04/05/25 22:26 04/06/25 03:30 Temperature 98.2 F 98.2 F 98 F Pulse Rate [Pulse Oximeter] 69 Respiratory Rate 16 Blood Pressure [Le ft Arm] 117/69 Pulse Oximetry 96 Oxygen Delivery Me thod Room Air Documenting provider has reviewed patient's vital signs: yes OB - DS: Summary Hospital Course Hospital Course: The patient is a 30 year old G 3 P 2 at 38.1 weeks gestation that was admitted to the Center on 04/04/25 for repeat after PROM. She had an uncomplicated delivery. She delivered a viable male . She is breast feeding and supplementing with syringe feeds. Latch has been difficult but is working on it with . the patient has done well. Vitals have been stable.? She has remained afebrile.? Has a good appetite, is tolerating a general diet.? She is voiding without difficulty.? She is passing gas and has had a bowel movement.? She is ambulating and denies any dizziness.? Has small amount of rubra lochia. She is planning oral progestin only pills for prevention. She declines the need for oxycodone prescription for discharge as her pain has been well controlled with ibuprofen and Tylenol. Peripartum Data Infant delivery method: Repeat Section Procedures: Procedures Operation Date: 04/04/25 02:30 Actual Procedure Side Surgeon p Repeat Section Kiersten Horner MD complications: none [place] Gender: Male Infant Discharge Plan: Home Status at Discharge Functional status at discharge: independent ambulation Overall status at discharge: patient is progressing back to baseline Time Spent with Patient Time attestation: Total time spent providing and/or coordinating discharge services: Discharge Plan Discharge Disposition: Home, Self-Care Date of Admission: 04/04/25 01:57 Attending Provider on Discharge: Anahy Agarwal Primary Care Provider: Tati Summers Condition: Stable Anticipated Discharge Date/Time: 04/06/25 10:00 Discharge Medications: New docusate sodium 100 mg Capsule 100 mg PO DAILY Qty: 120 0RF Rx Instructions: Take 1-2 tablets daily as needed for constipation. ibuprofen 600 mg Tablet 600 mg PO Q6H PRN (Reason: Pain) Qty: 90 0RF Continued DHA 200 mg capsule 200 mg PO DAILY sertraline 100 mg tablet 100 mg PO DAILY Discharge Orders: Discharge Order (Routine); Ordered 04/06/25 Ordered By: Anahy Agarwal Consulting provider completed their portion of the discharge: Yes Patient Education: OB /Breast Feeding Additional Instructions: Discharge instructions were reviewed with the patient including signs and symptoms of infection and home going medications Lifting Restrictions: 20 pounds for 6 weeks Do not submerge incision under water X 2 weeks? Nothing vaginally for 6 weeks: no tampons or intercourse Do not drive while taking narcotic pain medication(s) Off Work or School for 8 weeks 2-week post-operative visit with OB: incision check, with provider who performed section is preferred 6-week visit for an annual exam with your Family Medicine Provider at [facility]. consultation services are available to all mothers and babies for the first year after delivery.? To make an appointment, please call [phone]. . Activity Level: Activity as Tolerated Discharge Diet: Regular Follow Up Appointments: [facility] [Provider Group] Tati Summers DO [Primary Care Provider, Family Practice] Forms: [employer] Info Instructions
[2025-04-06] MEDS: IBUPROFEN 600 MG TABLET PO (07:49)
[2025-04-06] MEDS: DOCUSATE SODIUM 100 MG CAPSULE PO (07:50)
[2025-04-06 10:35] VITALS: BP 107/66; PULSE 97; RESP 17; TEMP 36.7; O2SAT 98
== END 2025-04-06 11:08 | disposition home or self-care (01) | DRG 540 ==
LOC: OB OUT 01:57 → OB 01:57
PROVIDERS: Admitting Provider Obstetrics & Gynecology; PCP Family Medicine; Visit Provider Obstetrics & Gynecology
PROC: 10D00Z1 Extraction of Products of Conception, Low, Open Approach (ICD-10-PCS; CPT 59514; principal; 2025-04-04 02:30)
DX: O34.211 Maternal care for low transverse scar from previous cesarean delivery (principal); O42.92 Full-term premature rupture of membranes, unspecified as to length of time between rupture and onset of labor; G89.18 Other acute postprocedural pain; O34.03 Maternal care for unspecified congenital malformation of uterus, third trimester; Q51.3 Bicornate uterus; Q51.818 Other congenital malformations of uterus; O99.344 Other mental disorders complicating childbirth; F41.9 Anxiety disorder, unspecified; F32.A Depression, unspecified; Z3A.38 38 weeks gestation of pregnancy; Z37.0 Single live birth
CPT/HCPCS: 01961; 36415; 64488; 76942; 84112; 85018; 85025; 86592; 86850; 86900; 86901; 99140; A4314; A9270; J0456; J0665; J0666; J0690; J1100; J1885; J2371; J2405; J2590; J7050; J7120